=== PATIENT | female | born 1970 | race African-American/Black ===

== ENCOUNTER 2019-06-06 11:36 | Observation (INO) | payer OTHER ==
--- NOTE | 2019-06-06 12:22 | RAD ---
Exam: Chest one view HISTORY:Pain Comparison: 11/13/2018 FINDINGS: Lungs: No masses or consolidation. Cardiac silhouette:Enlarged cardiac silhouette Pulmonary vessels: Prominent pulmonary vasculature Pleural Spaces: Clear Pneumothorax: None Osseous abnormalities: None of acuity. IMPRESSION: CHF.
[2019-06-06 12:52] LABS: ALT (SGPT) 16 U/L (8-55); AST (SGOT) 22 U/L (5-34); Albumin 4.4 g/dL (3.5-5.0); Alkaline Phosphatase 79 U/L (40-110); Anion Gap 16 mmol/L (10-20); BUN (Urea Nitrogen) 18 mg/dL (7.0-18.7); Bilirubin, Total 0.2 mg/dL (0.2-1.2); CK (CPK) 102 U/L (29-168); Calc. Creatinine Clearance 0 mL/min (70-130); Calcium 9.6 mg/dL (7.8-10.44); Carbon Dioxide 24 mmol/L (22-29); Chloride 103 mmol/L (98-107); Estimated GFR-MDRD 81; Globulin 3.6 g/dL (2.4-3.5); Glucose 135 mg/dL (70-105); Lipase 13 U/L (8-78); Potassium 4.9 mmol/L (3.5-5.1); Sodium 138 mmol/L (136-145)
[2019-06-06] MEDS ORDERED: Aspirin Chewable 81 MG TAB ONE (13:01)
[2019-06-06] MEDS ORDERED: Nitroglycerin 2% Ointment 1 INCH/1 GM Packet ONE ×2 (13:01→13:02)
--- NOTE | 2019-06-06 14:47 | PDOC.FPRHP ---
- History of Present Illness Chief Complaint: chest pain History of Present Illness: 48-year-old female with a past medical history of a heart problem at age 24 requiring surgical intervention, CHF, asthma, and BRIGITTE. Patient presented with right low sided chest pain that radiates around her right upper abdomen and flanks. This has been intermittent for the past three days. Pain worse when walking, better when sitting up. The pain is sharp in character, and 8/10 in intensity. This has been going on for three weeks. Patient reports having nausea with this pain as well as shortness of breath. Patient reports back pain that is worse when lying flat. Denies any headache or palpitations. She also complains of a swollen throat with difficulty swallowing. ED Course: initial Neg trosp, EKG inverted T waves in lateral leads. ASA and nitro relieved pain slightly. - Allergies/Adverse Reactions Allergies Allergy/AdvReac Type Severity Reaction Status Date / Time amoxicillin Allergy Verified 06/06/19 17:07 clindamycin Allergy Verified 06/06/19 17:07 diphenhydramine HCl Allergy Verified 06/06/19 17:07 [From Benadryl] Penicillins Allergy Verified 06/06/19 17:07 Sulfa (Sulfonamide Allergy Verified 06/06/19 17:07 Antibiotics) - Home Medications Medication Instructions Recorded Confirmed Type Carvedilol [Coreg] 6.25 mg PO BID 06/06/19 06/06/19 History Fluticasone Propionate [Flonase 2 spray EA NARE HS 06/06/19 06/06/19 History Nasal [place]] Furosemide [Lasix] 20 mg PO DAILY 06/06/19 06/06/19 History Gabapentin 300 mg PO DAILY 06/06/19 06/06/19 History Hydrochlorothiazide 12.5 mg PO DAILY 06/06/19 06/06/19 History Lisinopril 2.5 mg PO DAILY 06/06/19 06/06/19 History Pantoprazole [Protonix] 40 mg PO DAILY 06/06/19 06/06/19 History Saxagliptin HCl [Onglyza] 5 mg PO DAILY 06/06/19 06/06/19 History tiZANidine HCl [Tizanidine HCl] 4 mg PO BID 06/06/19 06/06/19 History traZODone HCl [Trazodone HCl] 50 mg PO HS 06/06/19 06/06/19 History - History PMHx:DM II, Heart problem requiring surgery at [facility] at age of 24 (requesting records), CHF, [place], BRIGITTE PSHx: Cardiac surgery at age 24, appendectomy, Right Wrist Sx X3, hysterectomy, FHx: mother: CAD and CHF Social: Denies etoh, smoking or drug use. - Review of Systems General: denies: fever/chills, night sweats Eyes: denies: eye pain ENT: denies: nasal congestion Respiratory: reports: shortness of breath, exercise intolerance. denies: cough Cardiovascular: reports: chest pain. denies: palpitation, edema, paroxysmal nocturnal dyspnea, orthopnea Gastrointestinal: reports: nausea, abdominal pain. denies: vomiting, diarrhea, GI bleeding Genitourinary: denies: incontinence, dysuria Skin: denies: rashes, lesions Musculoskeletal: reports: pain (back pain). denies: swelling Neurological: denies: syncope, seizure - Vital signs BP: 121/101 HR: 84 RR: 25 Tmax: 98.2 Pox: 98% on RA Wt: 115.349 - Physical Exam Constitutional: NAD, awake, alert and oriented, well developed HEENT: normocephalic and atraumatic, PERRLA, EOMI, conjunctiva clear, grossly normal vision, grossly normal hearing, MMM, oropharynx clear -HEENT: scleral icterus Neck: supple, FROM, trachea midline, no LAD, no JVD Heart: RRR, normal S1/S2, no murmurs/rubs/gallops, pulses present, no edema Lungs: CTAB, no respiratory distress, good air movement, no rales/rhonchi, no wheezing, no retractions Abdomen: soft, bowel sounds present -Abdomen: + Keno sign Musculoskeletal: normal structure, normal tone, ROM grossly normal Neurological: no focal deficit, CN II-XII intact, normal sensation Skin: no rash/lesions, good turgor, capillary refill <2 seconds, no jaundice Heme/Lymphatic: no unusual bruising or bleeding, no purpura, no petechia Psychiatric: normal mood and affect, good judgment and insight, intact recent and remote memory FMR H&P: Results - Labs Result Diagrams: 06/07/19 06:00 06/07/19 06:00 Lab results: Sodium 138 mmol/L (136-145) 06/06/19 12:11 Potassium 4.9 mmol/L (3.5-5.1) 06/06/19 12:11 Chloride 103 mmol/L (98-107) 06/06/19 12:11 Carbon Dioxide 24 mmol/L (22-29) 06/06/19 12:11 BUN 18 mg/dL (7.0-18.7) 06/06/19 12:11 Creatinine 0.90 mg/dL (0.6-1.1) 06/06/19 12:11 Glucose 135 mg/dL (70-105) H 06/06/19 12:11 Calcium 9.6 mg/dL (7.8-10.44) 06/06/19 12:11 Total Bilirubin 0.2 mg/dL (0.2-1.2) 06/06/19 12:11 AST 22 U/L (5-34) 06/06/19 12:11 ALT 16 U/L (8-55) 06/06/19 12:11 Alkaline Phosphatase 79 U/L (40-110) 06/06/19 12:11 Creatine Kinase 102 U/L (29-168) 06/06/19 12:11 Serum Total Protein 8.0 g/dL (6.0-8.3) 06/06/19 12:11 Albumin 4.4 g/dL (3.5-5.0) 06/06/19 12:11 Lipase 13 U/L (8-78) 06/06/19 12:11 - EKG Interpretation EKG: T wave inversions in lateral leads FMR H&P: A/P - Problem List (1) Exertional angina Status: Acute Code(s): I20.8 - OTHER FORMS OF ANGINA PECTORIS (2) Asthma Status: Acute Code(s): J45.909 - UNSPECIFIED ASTHMA, UNCOMPLICATED (3) BRIGITTE (obstructive sleep apnea) Status: Acute Code(s): G47.33 - OBSTRUCTIVE SLEEP APNEA (ADULT) (PEDIATRIC) (4) Diabetes mellitus Status: Acute Code(s): E11.9 - TYPE 2 DIABETES MELLITUS WITHOUT COMPLICATIONS Qualifiers: Diabetes mellitus type: type 2 - Plan 48 y/o female admitted to [facility] for Exertional angina/ACS r/o vs. GI causes of chest pain. 1. Exertional Angina - Pt has extensive cardiac history. Had a cardiac surgery at [facility] at the age of 24. Requesting records from surgery, as patient is unsure what type of surgery she had done. - Risk stratify: FLP, A1C - Stress test and Echo ordered - Ordered BNP, - Initial trop negative, will trend - EKG, T wave inversions lateral leads 2. Possible Gallbladder pathology - Positive Rouse sign - Ordered RUQ US. - WBC normal. - Afebrile. 3. Reported Hx of CHF - requesting records from [facility] - Echo ordered 4. DM II - Pt unsure of home medications 5. Hx of asthma - Duonebs PRN 6. Hx of insomnia - Pt takes tradzodone at home - Continue Trazodone Code Status: Full Code DVT ppx: lovenox Diet: NPO Dispo: Stable, admitted to [facility] obs for ACS rule out and further GI workup. FMR H&P: Upper Level - Pertinent history This is a 48yo AA F presenting to the ER for a CC of chest pain that started about 2-3 days ago. She reports that she came in today because her chest pain has persisted and worsened. She states that it is a sharp pain occurring in the middle of her chest and radiating to her right side and shoulder. She states that her pain has come and gone. She reports some associated nausea but no vomiting. She endorses a headache. Denies any vision changes, palpitations or LE edema. She does endorse some SOB with exertion. She states her chest pain is worse with exertion. She states its better sitting up. She reports increased SOB lying flat at night. She also endorses some difficulty swallowing liquids greater than solids. She says this has been happening for many months now. She reports a PMH of an "aortic murmur" and had an "angioplasty" when she was 24. She states she saw Dr. Vasquez about a year ago. She also reports a hx of CHF and had an echo, but is not sure where or when. She is [place] [facility] [place] [facility] [place]. In the ER the patient was given ASA and nitro. EKG reviewed by me - inverted T waves in the lateral leads (V5/6) and inverted T waves in III, aVF. Trop neg x1. - Pertinent findings PE: General: no acute distress, obese F Cardio: RRR, no murmurs, rubs or gallops; TTP on anterior chest; no carotid bruits Resp: CTAB, non labored breathing Abd: CVA tenderness on the right; nondistended, TTP of RUQ (+ rouse sign), normal BS MSK: no LE edema Please see interns note for full HPI and PE - Plan Date/Time: 06/06/19 3607 I, Dr. Citlalli Painting, have evaluated this patient and agree with findings/plan as outlined by music internship resident. Pertinent changes/additions are listed here. 48yo AA F presenting today with a CC of chest pain. Atypical Chest pain r/o ACS Differential dx including: ACS, cholelithiasis, MSK or nephrolithiasis. HEART score of 3. Trop neg x 1. EKG changes significant for inverted T waves in leads III, aVF and V5/6. Risk factors include hx of DM, heart procedure at age 24, fam hx of CAD. - Will order BNP and echo due to patient's hx of CHF and heart surgery - Will order pharm stress test to r/o CAD - Continue to trend troponins - To r/o other etiologies: will order RUQ US, CBC, UA, and UDS. DMII - A1c, FLP - Will continue home meds - Mod SS Hx of cardiac issues - Will try to request records of heart procedure to see what exactly patient had done Asthma - Continue home meds, duonebs PRN DVT ppx: lovenox Diet: HH, NPO at midnight Dispo: admit to tele obs Addendum - Attending - Attending Attestation Date/Time: 06/07/19 1121 I personally evaluated the patient and discussed the management with the team on day of admission. I agree with the History, Examination, Assessment and Plan documented above with any addition or exceptions noted below. On ECG no TWI, just nonspecific changes. No ST changes. Unclear if abdominal or cardiac etiology, but will proceed with w/u as above.
[2019-06-06] MEDS ORDERED: Acetaminophen 325 MG TAB PO PRN (16:08)
[2019-06-06] MEDS ORDERED: Nitroglycerin 0.4 MG TAB (25 Tab Bottle) PO PRN (16:08)
[2019-06-06] MEDS ORDERED: Ondansetron ODT 4 MG TAB PO PRN (16:08)
[2019-06-06 16:16] VITALS: BMI 41.0
[2019-06-06 16:32] LABS: #Eosinphils 0.1 thou/uL (0.0-0.7); #Lymphocytes 3.1 thou/uL (1.20-3.40); #Monocytes 0.4 thou/uL (0.11-0.59); #Neutrophils 4.6 thou/uL (1.40-6.50); %Basophils 0.4 % (0.0-1.0); %Lymphocytes 37.3 % (21.0-51.0); %Monocytes 5.1 % (0.0-10.0); %Neutrophils 56.2 % (42.0-75.0); Hemoglobin 11.6 g/dL (12.0-16.0); Mean Corpuscular HGB CONC 31.5 g/dL (32.0-36.0); Mean Corpuscular Hemoglobin 25.7 pg (27.0-31.0); Mean Corpuscular Volume 81.5 fL (78.0-98.0); Mean Platelet Volume 10.3 fL (7.4-10.4); Platelet Count 203 thou/uL (130-400); RBC Distribution Width 12.6 % (11.5-14.5); Red Blood Cell (RBC) Count 4.53 mill/uL (4.20-5.40); White Blood Cell (WBC) Count 8.2 thou/uL (4.8-10.8)
[2019-06-06 16:43] LABS: Bacteria/HPF None Seen HPF (None Seen); Bilirubin Negative (Negative); Blood, Urine Negative (Negative); Clarity Clear (Clear); Glucose, Urine (Dipstick) Normal (Negative); Leukocyte Negative Leu/uL (Negative); Nitrite Negative (Negative); Protein, Urine (Dipstick) Negative (Neg-Trace); RBC/HPF 0-3 HPF (0-3); Squamous Epithelial 0-3 HPF (0-3); Urobilinogen Normal mg/dL (Less than 2); WBC/HPF 0-3 HPF (0-3)
[2019-06-06 16:48] LABS: Pregnancy Test - Urine (BHCG) Negative (Negative); Pregu Control Bar Appear? YES (CONTROL BAR); Specific Gravity 1.025 (1.002-1.036)
[2019-06-06 16:49] LABS: Pregu Control Background? CLEAR/WHITE (CLR/WHITE)
[2019-06-06 16:51] LABS: Cardiac Risk 4.4 (Less than 4.5)
[2019-06-06 16:51] LABS: Amphetamine Not Detected (NotDetected); Barbiturates Screen Not Detected (NotDetected); Benzodiazepine Screen Not Detected (NotDetected); Cocaine Metabolite Screen Not Detected (NotDetected); Medtox Control Line Valid? VALID (VALID); Medtox Reader # READER 1; Methadone Not Detected (NotDetected); Methamphetamine Not Detected (NotDetected); Opiate Screen Not Detected (NotDetected); Oxycodone Screen Not Detected (NotDetected); Phencyclidine (PCP) Not Detected (NotDetected); THC/Cannabinoid Screen Not Detected (NotDetected); Tricyclic Screen Not Detected (NotDetected)
--- NOTE | 2019-06-06 17:36 | ULT ---
ULTRASOUND ABDOMEN LIMITED: (RIGHT UPPER QUADRANT) DATE: 06/06/2019 HISTORY: 48-year-old female with right upper quadrant abdominal pain FINDINGS: Gallbladder: Normal wall thickness. No evidence of pericholecystic fluid, gallstones, or sludge. Liver: Diffusely increased echogenicity, questionable for fatty liver. Enlarged. Common duct caliber:5 mm. Right kidney: No hydronephrosis. Pancreas: Obscured by shadowing from bowel gas. IMPRESSION: 1) Hepatomegaly 2) questionable Hepatic steatosis. 3) no other pathology identified. 4) pancreas not visualized.
[2019-06-06 18:04] LABS: Troponin I Less than 0.010 ng/mL (< 0.028)
[2019-06-06 20:48] LABS: Troponin I Less than 0.010 ng/mL (< 0.028)
[2019-06-06] MEDS ORDERED: traZODone HCl 50 MG TAB PO SCH (21:00)
[2019-06-06] MEDS ORDERED: tiZANidine HCl 4 MG TAB PO SCH (21:00)
[2019-06-06] MEDS ORDERED: Fluticasone Propionate Nasal Spray 16 gm Bottle NASAL SCH (21:00)
[2019-06-06] MEDS ORDERED: Ibuprofen 600 MG TAB PO PRN (23:37)
[2019-06-07] MEDS ORDERED: Mag-Al 1200 mg/1200 mg/30 ML UDCUP PO PRN (06:04)
--- NOTE | 2019-06-07 06:09 | PDOC.FM ---
- Subjective Subjective: Tele monitoring overngiht: SP, MITCHEL 70's HR. Denies SOB. Chest pain and R upper abdominal pain still present 7/10 in intensity. Afebrile, vitals stable. no acute overnight events. - Objective MAR Reviewed: Yes Vital Signs & Weight: Vital Signs (12 hours) Temp Pulse Resp BP Pulse Ox 06/07/19 04:17 97.3 F L 69 16 124/59 L 97 06/07/19 01:57 95 06/06/19 19:35 98.2 F 82 16 140/74 97 Weight Weight 115.394 kg I&O: 06/05/19 06/06/19 06/07/19 06:59 06:59 06:59 Intake Total 600 Output Total 600 Balance 0 Result Diagrams: 06/07/19 06:00 06/07/19 06:00 Phys Exam - Physical Examination Constitutional: NAD HEENT: PERRLA, moist MMs scleral icterus Neck: no nodes, no JVD, supple, full ROM Respiratory: no wheezing, no rales, no rhonchi, clear to auscultation bilateral Tenderness to right sided lower anterior chest wall to palpation. Cardiovascular: RRR, no significant murmur, no rub Gastrointestinal: soft, no distention, positive bowel sounds RUQ abdominal tenderness to soft palpation. Musculoskeletal: no edema, pulses present Neurological: non-focal, normal sensation, moves all 4 limbs Lymphatic: no nodes Psychiatric: normal affect, A&O x 3 Skin: no rash, normal turgor, cap refill <2 seconds Dx/Plan (1) Exertional angina Code(s): I20.8 - OTHER FORMS OF ANGINA PECTORIS Status: Acute (2) Asthma Code(s): J45.909 - UNSPECIFIED ASTHMA, UNCOMPLICATED Status: Acute (3) BRIGITTE (obstructive sleep apnea) Code(s): G47.33 - OBSTRUCTIVE SLEEP APNEA (ADULT) (PEDIATRIC) Status: Acute (4) Diabetes mellitus Code(s): E11.9 - TYPE 2 DIABETES MELLITUS WITHOUT COMPLICATIONS Status: Acute Qualifiers: Diabetes mellitus type: type 2 (5) TAYLOR (nonalcoholic steatohepatitis) Code(s): K75.81 - NONALCOHOLIC STEATOHEPATITIS (TAYLOR) Status: Suspected - Plan Plan: 48 y/o female admitted to tele obs for Exertional angina/ACS r/o vs. GI causes of chest pain. 1. Exertional Angina - Pt has extensive cardiac history. Had a cardiac surgery at [facility] at the age of 24. Requesting records from surgery, as patient is unsure what type of surgery she had done. - Risk stratification: FLP: Tri 104, T Chol 221, LDL 150, HDL 50. A1C pending. - Added Atorvastatin 40 mg Qhs. - Stress test and Echo ordered - BNP 12.2 - trop negative X3 - EKG, T wave inversions lateral leads 2. Hepatomegaly, most likely secondary to TAYLOR - US: hepatomegaly with possible hepatosteatosis. no other GI pathology. - RUQ abdominal Tenderness - WBC normal. - Afebrile. 3. Reported Hx of CHF - requesting records from [facility] - Echo ordered - BNP 12.2 4. DM II - reconciled home medications. Continue. 5. Hx of asthma - Duonebs PRN 6. Hx of insomnia - Pt takes tradzodone at home - Continue Trazodone 7. Obesity - BMI 41.1 - Most likely cause of TAYLOR - Counseled on Diet and exercise Code Status: Full Code DVT ppx: lovenox Diet: NPO Dispo: Stable, admitted to Tele obs for ACS rule out and further GI workup. Addendum - Attending - Attending Attestation Date/Time: 06/07/19 [id number] I personally evaluated the patient and discussed the management with Dr. Parmar. I agree with the History, Examination, Assessment and Plan documented above with any addition or exceptions noted below. The patient's chest pain is improved. She needs a 2-day stress and pt refuses to stay in the hospital. She is leaving AMA.
[2019-06-07 07:06] LABS: #Eosinphils 0.1 thou/uL (0.0-0.7); #Lymphocytes 2.9 thou/uL (1.20-3.40); #Monocytes 0.5 thou/uL (0.11-0.59); #Neutrophils 3.6 thou/uL (1.40-6.50); %Basophils 0.3 % (0.0-1.0); %Eosinophils 0.9 % (0.0-10.0); %Lymphocytes 40.4 % (21.0-51.0); %Monocytes 7.4 % (0.0-10.0); Mean Corpuscular HGB CONC 31.5 g/dL (32.0-36.0); Mean Corpuscular Hemoglobin 25.3 pg (27.0-31.0); Mean Corpuscular Volume 80.2 fL (78.0-98.0); Mean Platelet Volume 10.3 fL (7.4-10.4); Platelet Count 186 thou/uL (130-400); RBC Distribution Width 12.9 % (11.5-14.5); Red Blood Cell (RBC) Count 4.37 mill/uL (4.20-5.40); White Blood Cell (WBC) Count 7.1 thou/uL (4.8-10.8)
[2019-06-07 07:07] LABS: Hemoglobin A1c 6.9 % (4.0-6.0)
[2019-06-07 07:20] LABS: Anion Gap 11 mmol/L (10-20); BUN (Urea Nitrogen) 15 mg/dL (7.0-18.7); Calc. Creatinine Clearance 155 mL/min (70-130); Calcium 9.4 mg/dL (7.8-10.44); Carbon Dioxide 31 mmol/L (22-29); Chloride 101 mmol/L (98-107); Estimated GFR-MDRD 90; Glucose 146 mg/dL (70-105); Potassium 3.9 mmol/L (3.5-5.1); Sodium 139 mmol/L (136-145)
[2019-06-07 08:08] VITALS: BP 146/65; TEMP 98.3
[2019-06-07] MEDS ORDERED: FLU VACC QS2019-20(6MOS UP)/PF 60 MCG/0.5 ML SYRINGE IM ONE (09:00)
[2019-06-07] MEDS ORDERED: Furosemide 20 MG TAB PO SCH (09:00)
[2019-06-07] MEDS ORDERED: Enoxaparin Sodium 40 MG/0.4 ML SYRINGE SC SCH (09:00)
[2019-06-07] MEDS ORDERED: Gabapentin 300 MG CAP PO SCH (09:00)
[2019-06-07] MEDS ORDERED: Hydrochlorothiazide 25 MG TAB PO SCH (09:00)
[2019-06-07] MEDS ORDERED: Aspirin 325 mg Enteric Coated Tablet PO SCH (09:00)
[2019-06-07] MEDS ORDERED: Alogliptin 25 MG TAB PO SCH (09:00)
[2019-06-07] MEDS ORDERED: Lisinopril 2.5 MG TAB PO SCH (09:00)
--- NOTE | 2019-06-07 11:39 | NM ---
Exam: Nuclear medicine cardiac SPECT, stress only HISTORY: Chest pain Lexiscan stress only exam was performed. The patient left AMA before the resting study could be perfo rmed. Patient was injected with 33 mCi technetium 99m sestamibi intravenously for stress only imaging. No convincing focal areas of abnormal decreased activity to suggest infarct or ischemia. LHR equals 0.23 EDV 187 mL Ejection fraction equals 31% Generalized hypokinesis. IMPRESSION: Abnormal elevated EDV and low ejection fraction. No scan evidence for overt infarct or ischemia. Patient left AMA before resting exam could be performed.
[2019-06-07] MEDS ORDERED: Regadenoson 0.4 MG/5 ML SYRINGE ONE (20:17)
[2019-06-07] MEDS ORDERED: Atorvastatin Calcium 40 MG TAB PO SCH (21:00)
--- NOTE | 2019-06-08 02:35 | DIS ---
DATE OF ADMISSION: 06/06/2019 DATE OF DISCHARGE: 06/07/2019 RESIDENT: Marcelle Parmar DO ADMITTING ATTENDING: MD GABO Rodriguez ATTENDING: Dr. Stover CONSULTS: None. PROCEDURES PERFORMED: Start of a nuclear medicine stress test procedure not finished due to the patient wanting to leave AMA. DIAGNOSES: Exertional angina, nonalcoholic fatty liver disease, congestive heart failure, asthma, BRIGITTE, diabetes mellitus type 2. DISCHARGE MEDICATIONS: The patient left AMA. Recommended the patient to continue home medications with the addition of atorvastatin 40 mg p.o. daily. The patient left AMA though. Recommended her to follow up outpatient. HISTORY OF PRESENT ILLNESS/HOSPITAL COURSE: A 48-year-old female with a past medical history of cardiac surgery at age 24 and congestive heart failure pain with exertional angina very suspicious for cardiac cause of the chest pain versus GI causes, so we decided to order a stress test and echo for the patient. The patient was going to require a two-day stress. She became very frustrated, knowing that she wanted to leave against medical advice. I counseled the patient that this could be cardiac chest pain in nature and that she really should stay for the second half of stress test. She still wanted to go home against my medical opinion. I told the patient to please go to the nearest ER if she began having chest pain again. She agreed to that the plan. I also recommended to the patient that she follow up with primary care physician regarding her nonalcoholic fatty liver disease in addition of atorvastatin to her daily regimen. DISPOSITION: The patient was stable when she left and understood the risk of leaving against medical advice. I advised her to follow up outpatient with primary care doctor to further workup this chest pain. Job ID: [id number] [facility]
--- NOTE | 2019-06-10 14:42 | EKG ---
Test Reason : Blood Pressure : / mmHG Vent. Rate : 081 BPM Atrial Rate : 081 BPM P-R Int : 144 ms QRS Dur : 090 ms QT Int : 384 ms P-R-T Axes : 074 -15 -21 degrees QTc Int : 446 ms Normal sinus rhythm Possible Left atrial enlargement Left ventricular hypertrophy Nonspecific T wave abnormality Abnormal ECG Confirmed by TOÑO LOPEZ DO ([id number]), tape editor EKATERINA CONTRERAS ([id number]) on 06/10/2019 2:42:07 PM Referred By: Confirmed By:TOÑO LOPEZ DO
== END 2019-06-07 10:56 | disposition left against medical advice (07) ==
LOC: ERS 11:36 → 2SW 13:30
PROVIDERS: ADMIT Emergency Medicine; ATTEND Emergency Medicine
DX: I20.8 Other forms of angina pectoris (principal); I11.0 Hypertensive heart disease with heart failure; I50.9 Heart failure, unspecified; E11.9 Type 2 diabetes mellitus without complications; G47.00 Insomnia, unspecified; G47.33 Obstructive sleep apnea (adult) (pediatric); J45.909 Unspecified asthma, uncomplicated; K76.0 Fatty (change of) liver, not elsewhere classified; Z79.899 Other long term (current) drug therapy; Z88.0 Allergy status to penicillin; Z88.1 Allergy status to other antibiotic agents; Z88.2 Allergy status to sulfonamides
CPT/HCPCS: 36415; 71045; 76705; 78452; 80048; 80053; 80061; 80306; 81001; 81025; 82550; 83036; 83690; 83880; 84484; 85025; 93005; 93017; 94760; A9500; G0378; J2785

== ENCOUNTER 2024-03-20 10:04 | Emergency (ER) | payer OTHER ==
[2024-03-20 11:32] LABS: #Basophils Less than 0.03 10x3/uL (0.0-0.2); %Basophils 0.2 % (0.0-1.0); %Eosinophils 1.2 % (0.0-10.0); %Lymphocytes 25.4 % (21.0-51.0); %Monocytes 6.3 % (0.0-10.0); %Neutrophils 66.5 % (42.0-75.0); Hematocrit 35.9 % (36.0-47.0); Hemoglobin 10.5 g/dL (12.0-16.0); Mean Corpuscular HGB CONC 29.2 g/dL (32.0-36.0); Mean Corpuscular Hemoglobin 25.1 pg (27.0-31.0); Mean Corpuscular Volume 85.7 fL (78.0-98.0); Mean Platelet Volume 12.4 fL (7.4-10.4); Platelet Count 207 10x3/uL (130-400); RBC Distribution Width 13.8 % (11.5-14.5); Red Blood Cell (RBC) Count 4.19 mill/uL (4.20-5.40)
[2024-03-20 12:07] LABS: ALT (SGPT) 10 U/L (8-55); AST (SGOT) 10 U/L (5-34); Albumin 3.7 g/dL (3.5-5.0); Alkaline Phosphatase 92 U/L (40-110); Anion Gap 13 mmol/L (10-20); BUN (Urea Nitrogen) 11 mg/dL (9.8-20.1); Bilirubin, Total 0.4 mg/dL (0.2-1.2); Calc. Creatinine Clearance 0 mL/min (70-130); Calcium 9.3 mg/dL (7.8-10.44); Carbon Dioxide 25 mmol/L (22-29); Chloride 103 mmol/L (98-107); Estimated GFR 84; Globulin 2.9 g/dL (2.4-3.5); Glucose 272 mg/dL (70-105); Potassium 3.6 mmol/L (3.5-5.1); Protein, Total 6.6 g/dL (6.0-8.3); Sodium 137 mmol/L (136-145)
[2024-03-20 12:15] LABS: Troponin I Less than 0.010 ng/mL (< 0.028)
[2024-03-20 13:02] LABS: Bacteria/HPF None Seen HPF (None Seen); Bilirubin Negative (Negative); Blood, Urine Negative (Negative); CAUTI Indications for Culture Dysuria,urgency,freq; Clarity Clear (Clear); Glucose, Urine (Dipstick) Greater than 1000 mg/dL (Negative); Ketone, Urine Negative (Negative); Leukocyte 250 Leu/uL (Negative); Nitrite Negative (Negative); Protein, Urine (Dipstick) 20 mg/dL (Neg-Trace); RBC/HPF 0-3 HPF (0-3); Specific Gravity, Urine 1.033 (1.002-1.036); Urobilinogen Normal mg/dL (Less than 2); pH, Urine 5.5 (5.0-9.0)
[2024-03-20 13:04] LABS: Urine Culture Reflex Yes Yes
== END 2024-03-20 13:06 | disposition home or self-care (01) ==
LOC: ERS 10:04
DX: M54.50 Low back pain, unspecified (principal); R29.91 Unspecified symptoms and signs involving the musculoskeletal system; I11.0 Hypertensive heart disease with heart failure; I50.9 Heart failure, unspecified; Z79.899 Other long term (current) drug therapy; Z79.82 Long term (current) use of aspirin
CPT/HCPCS: 36415; 72131; 80053; 81001; 83880; 84484; 85025; 87077; 87086; 93005